=== PATIENT | male | born 2000 | race Caucasian/White ===

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

== ENCOUNTER → 2022-01-07 | Day surgery (SDC) | payer OTHER ==
[~2022-01-07] MED LIST changes: +CETIRIZINE HCL10 MG PO; +EYE ITCH RELIEF5 ML EYEBOTH; +FLONASE ALLER15.8 ML; +PERCOCET 5/325 T1 EA PO; +SYMBICORT 80-10.2 GM INH; +VENTOLIN HFA INH
== END | disposition home or self-care (01) ==
LOC: OR 06:35
DX: K40.90 Unilateral inguinal hernia, without obstruction or gangrene, not specified as recurrent (principal); J45.909 Unspecified asthma, uncomplicated; Z79.899 Other long term (current) drug therapy; Z20.822 Contact with and (suspected) exposure to COVID-19
CPT/HCPCS: C1781; J0690; J1100; J1170; J1885; J2001; J2250; J2405; J2704; J3010; J7120